=== PATIENT | female | born 1950 | race Hispanic/Latino ===

== ENCOUNTER → 2024-04-28 | Day surgery (SDC) | payer MEDICARE ==
[2024-04-26 09:32] LABS: BASOPHILS # (AUTO) 0.1 (0.0-0.1); BASOPHILS % 0.6 % (0.0-1.0); EOSINOPHILS # (AUTO) 0.4 (0.0-0.4); EOSINOPHILS % 3.8 % (0.0-6.0); HEMATOCRIT 34.9 % (34.2-44.1); LYMPHOCYTES # (AUTO) 2.2 (1.0-3.2); LYMPHOCYTES % 19.1 % (18.0-39.1); MEAN CORPUSCULAR HEMOGLOBIN 32.7 pg (28-32); MEAN CORPUSCULAR HGB CONC 31.5 g/dL (31-35); MEAN CORPUSCULAR VOLUME 103.9 fL (81-99); MONOCYTES # (AUTO) 0.8 (0.2-0.8); MONOCYTES % 6.8 % (4.4-11.3); NEUTROPHILS # (AUTO) 7.9 (2.1-6.9); NEUTROPHILS % 69.4 % (38.7-80.0); PLATELET COUNT 227 x10e3/uL (140-360); RED BLOOD COUNT 3.36 x10e6/uL (3.6-5.1); RED CELL DISTRIBUTION WIDTH 19.4 % (11.7-14.4); WHITE BLOOD COUNT 11.44 x10e3/uL (4.8-10.8)
[2024-04-26 09:57] LABS: ANION GAP 11.4 mmol/L (8-16); CALCIUM 10.2 mg/dL (8.4-10.2); CREATININE, SERUM 1.15 mg/dL (0.57-1.11); POTASSIUM 4.4 mmol/L (3.5-5.1)
[~2024-04-28] MED LIST: ACETAMINOPHEN 1000 MG/100 ML 100 ML IV ONE; ATORVASTATIN CA20 MG PO; DOXERCALCIFER0.5 MCG PO; EPHEDRINE SULFATE INJ 50 MG/ML VIAL ONE; EVISTA60 MG PO; FENTANYL CITRATE/PF 100MCG/2 ML INJ ONE; FEROSUL325 MG PO; LIDOCAINE HCL 2% LOCAL INJ 5 ML SDV VIAL INJ ONE; LISINOPRIL10 MG PO; LISINOPRIL5 MG PO; MULTI-VITAMIN1 EACH PO; NOVOLOG INSULIN PUMP SC; ONDANSETRON HCL INJ 2MG/ML 2ML 2 MG/ML VIAL ONE; PROPOFOL IV EMULSION 10 MG/ML 20 ML VIAL ONE; SEVOFLURANE INHAL SOLN 250 ML PEN BTL ONE; VITAMIN D PO
[2024-04-28] MEDS: Vancomycin IV 1 GM VIAL ONE (08:49)
[2024-04-28] MEDS: LACTATED RINGER'S 1,000 ML ONE (08:49)
[2024-04-28] MEDS: SODIUM CHLORIDE 0.9% 250ML 250 ML ONE (08:49)
[2024-04-28 12:30] VITALS: BP 150/60; PULSE 78; RESP 18; O2SAT 96
== END | disposition home or self-care (01) ==
LOC: OR 05:00
PROVIDERS: ATTEND Podiatrist Foot Surgery
DX: M86.671 Other chronic osteomyelitis, right ankle and foot (principal); M20.41 Other hammer toe(s) (acquired), right foot; L97.519 Non-pressure chronic ulcer of other part of right foot with unspecified severity; E11.9 Type 2 diabetes mellitus without complications; I10 Essential (primary) hypertension; J45.909 Unspecified asthma, uncomplicated; E78.5 Hyperlipidemia, unspecified; Z88.1 Allergy status to other antibiotic agents; Z88.0 Allergy status to penicillin; Z88.2 Allergy status to sulfonamides; Z01.810 Encounter for preprocedural cardiovascular examination; Z01.812 Encounter for preprocedural laboratory examination; Z01.818 Encounter for other preprocedural examination; Z79.4 Long term (current) use of insulin; Z79.899 Other long term (current) drug therapy
CPT/HCPCS: 28825 ×3; 36415; 71046; 76000; 80048; 85025; 88305; 88311; 93005; J0131; J2003; J2405; J2704; J3010; J3370; J7050; J7121; V2790; 88304